=== PATIENT | female | born 1960 | race Caucasian/White ===

== ENCOUNTER → 2016-07-15 | Outpatient (CLI) | payer OTHER ==
[~2016-07-15] MED LIST: ARMOUR THYROID60 MG PO; LOSARTAN POTASS1 TA9 PO; ZANTAC 300300 MG PO; ZOCOR10 MG PO
--- NOTE | ~2016-07-15 | ST ---
[place], [place] EXERCISE STRESS TEST REPORT NAME: CHINO PATRICIO UNIT #: [id number] ROOM: DOCTOR: HENRY BUTTS [facility],YOLANDE BIRTHDATE: [birth year] DOS: 07/15/2016 The patient received Lexiscan 0.4 mg over 10 seconds. Heart rate was 103. There are no ischemic changes on EKG. The patient has a right bundle branch block, secondary ST changes, isotope was injected. Myocardial perfusion scan to follow and the Cardiolite was injected. YOLANDE FIGUEROA MD CM:STRESS:EXERCISE STRESS TEST REPORT [id number] YOLANDE FIGUEROA MD [facility]
== END | disposition home or self-care (01) ==
LOC: CARD 02:52
DX: I10 Essential (primary) hypertension (principal); R07.9 Chest pain, unspecified; R53.83 Other fatigue; Z82.49 Family history of ischemic heart disease and other diseases of the circulatory system

== ENCOUNTER → 2016-07-21 | Outpatient (CLI) | payer OTHER | END | disposition home or self-care (01) | LOC: CARD 11:24 | DX: I10 Essential (primary) hypertension (principal); R07.9 Chest pain, unspecified; Z82.49 Family history of ischemic heart disease and other diseases of the circulatory system ==

== ENCOUNTER → 2017-09-02 | Outpatient (CLI) | payer OTHER | END | disposition home or self-care (01) | LOC: US 09:12 | DX: K76.0 Fatty (change of) liver, not elsewhere classified (principal) ==

== ENCOUNTER → 2022-10-05 | Outpatient (CLI) | payer OTHER | END | disposition home or self-care (01) | LOC: CT 01:10 | PROVIDERS: ATTEND Specialist | DX: J32.9 Chronic sinusitis, unspecified (principal) ==

== ENCOUNTER → 2023-04-14 | Outpatient (CLI) | payer OTHER | END | disposition home or self-care (01) | LOC: LAB 12:31 | PROVIDERS: ATTEND Family Medicine | DX: Z01.812 Encounter for preprocedural laboratory examination (principal) ==

== ENCOUNTER → 2023-04-15 | Outpatient (CLI) | payer OTHER | END | disposition home or self-care (01) | LOC: CT 01:22 | PROVIDERS: ATTEND Family Medicine | DX: R05.3 Chronic cough (principal); I51.7 Cardiomegaly ==

== ENCOUNTER → 2023-08-26 | Outpatient (CLI) | payer OTHER ==
[2023-08-26 09:31] LABS: HEMATOCRIT 46.3 % (37.0-47.0); MEAN CELL VOLUME 93.5 fl (81.0-99.0); MEAN CORPUSCULAR HGB 31.1 pg (27.0-31.0); MEAN CORPUSCULAR HGB CONC 33.3 g/dl (33.0-37.0); MEAN PLATELET VOLUME 10.1 fl (9.6-12.3); RED BLOOD COUNT 4.95 10*6/uL (4.10-5.10); RED CELL DISTRI WIDTH 12.8 % (0-14.5); WHITE BLOOD COUNT 7.7 10*3/uL (4.8-10.8)
[2023-08-26 09:54] LABS: ALKALINE PHOSPHATASE 89 U/L (46-116); BUN 13 mg/dl (9-23); CHLORIDE 102 mmol/L (98-107); CHOLESTEROL 262 mg/dL (<200); FREE T4 1.28 ng/dl (0.89-1.76); LDL CHOLESTEROL 175 mg/dL (9-159); POTASSIUM 3.9 mmol/L (3.4-5.1); SGPT/ALT 40 U/L (5-49); TOTAL PROTEIN 7.9 gm/dL (6.0-8.0); TRIGLYCERIDES 221 mg/dl (<150)
[2023-08-26 10:09] LABS: VITAMIN D, 25-HYDROXY 17.7 ng/mL (30-100)
== END ==
LOC: LAB 08:37
PROVIDERS: ATTEND Family Medicine
DX: I10 Essential (primary) hypertension (principal); E03.9 Hypothyroidism, unspecified; E55.9 Vitamin D deficiency, unspecified; R41.0 Disorientation, unspecified; E74.9 Disorder of carbohydrate metabolism, unspecified; R63.5 Abnormal weight gain

== ENCOUNTER → 2023-10-05 | Outpatient (CLI) | payer OTHER | END | disposition home or self-care (01) | LOC: CT 09-06 15:00 | PROVIDERS: ATTEND Family Medicine | DX: K76.0 Fatty (change of) liver, not elsewhere classified (principal); Z90.49 Acquired absence of other specified parts of digestive tract ==